=== PATIENT | male | born 1950 | race African-American/Black ===

== ENCOUNTER 2018-10-13 14:26 | Emergency (ER) | payer MEDICARE ==
[2018-10-13] MEDS ORDERED: Ondansetron PF 4 MG/2 ML Vial ONE (15:32)
[2018-10-13 15:55] LABS: Band 2 % (5-11); Hemoglobin 9.6 g/dL (14.0-18.0); Lymphocytes 5 % (21-51); MDiff Complete? YES; Mean Corpuscular HGB CONC 31.6 g/dL (32.0-36.0); Mean Corpuscular Hemoglobin 28.5 pg (27.0-31.0); Mean Corpuscular Volume 90.4 fL (78.0-98.0); Mean Platelet Volume 7.1 fL (7.4-10.4); Monocytes 4 % (0-10); Neutrophil 88 % (42-75); Platelet Count 177 thou/uL (130-400); Reactive Lymphocytes 1 % (0-10); Red Blood Cell (RBC) Count 3.38 mill/uL (4.70-6.10); White Blood Cell (WBC) Count 9.5 thou/uL (4.8-10.8)
[2018-10-13 15:56] LABS: ALT (SGPT) 25 U/L (8-55); AST (SGOT) 34 U/L (5-34); Alkaline Phosphatase 47 U/L (40-150); Anion Gap 17 mmol/L (10-20); BUN (Urea Nitrogen) 13 mg/dL (8.4-25.7); Bilirubin, Total 0.9 mg/dL (0.2-1.2); Calc. Creatinine Clearance 0 mL/min (70-130); Calcium 9.1 mg/dL (7.8-10.44); Carbon Dioxide 23 mmol/L (23-31); Chloride 100 mmol/L (98-107); Estimated GFR-MDRD 41; Glucose 171 mg/dL (80-115); Lipase 8 U/L (8-78); Sodium 136 mmol/L (136-145)
[2018-10-13 16:08] LABS: Clarity Clear (Clear); Glucose, Urine (Dipstick) Negative (Negative); Leukocyte Negative (Negative); Nitrite Negative (Negative); Protein, Urine (Dipstick) 30 mg/dL (Neg-Trace); Specific Gravity, Urine 1.015 (1.005-1.030); Urobilinogen 0.2 mg/dL (0.2-1.0); pH, Urine 5.5 (5.0-9.0)
[2018-10-13 16:09] LABS: Bilirubin Negative (Negative); Blood, Urine Small (Negative)
[2018-10-13 16:19] LABS: Bacteria/HPF Rare-Few HPF (None Seen); RBC/HPF 0-3 HPF (0-3); Squamous Epithelial 0-3 HPF (0-3); WBC/HPF 0-3 HPF (0-3)
[2018-10-13 16:20] LABS: Crystals/HPF 3+ URIC ACID HPF (Negative)
[2018-10-13 18:00] LABS: Troponin I 0.087 ng/mL (< 0.028)
[2018-10-13] MEDS ORDERED: Aspirin Chewable 81 MG TAB ONE (18:37)
--- NOTE | 2018-10-13 18:49 | CT ---
CT ABDOMEN AND PELVIS WITHOUT CONTRAST: 10/13/18 HISTORY: Nausea, vomiting, epigastric pain. No IV contrast due to abnormal lab values. FINDINGS: Comparison is made with exam of 09/23/11. Absence of oral and IV contrast reduces the sensitivity of the exam particularly for the evaluation o f solid organs and bowel. Lung bases are unremarkable. No free air or free fluid is seen in the abdomen or pelvis. No calcified gallstones are noted. There is a 3 mm calculus in the right kidney. No calculi is seen in the left k idney, either ureter or the urinary bladder. No hydroureteronephrosis is seen. The prostate is enlarg ed. There is no evidence of aneurysmal dilatation of the abdominal aorta. Degenerative changes are presen t in the spine. A normal appearing appendix is present. There are bilateral fat containing inguinal h ernia. The small bowel loops are not abnormally dilated. IMPRESSION: 1. Nonobstructing 3 mm right renal calculus. 2. Prostatic enlargement. 3. No evidence of appendicitis. POS: [facility]
== END 2018-10-13 21:12 | disposition home or self-care (01) ==
LOC: BURERS 14:26
DX: A08.4 Viral intestinal infection, unspecified (principal); I12.9 Hypertensive chronic kidney disease with stage 1 through stage 4 chronic kidney disease, or unspecified chronic kidney disease; R79.89 Other specified abnormal findings of blood chemistry; N18.9 Chronic kidney disease, unspecified; E11.22 Type 2 diabetes mellitus with diabetic chronic kidney disease; F32.9 Major depressive disorder, single episode, unspecified; Z79.899 Other long term (current) drug therapy
CPT/HCPCS: 74176; 80053; 81003; 81015; 82274; 82553; 83605; 83690; 84484; 85025; 93005; 96374; J2405

== ENCOUNTER 2019-03-10 19:05 | Emergency (ER) | payer MEDICARE ==
[2019-03-10] MEDS ORDERED: Ondansetron PF 4 MG/2 ML Vial ONE (19:23)
[2019-03-10 19:48] LABS: Bilirubin Negative (Negative); Blood, Urine Small (Negative); Clarity Slightly Cloudy (Clear); Glucose, Urine (Dipstick) 500 mg/dL (Negative); Leukocyte Negative (Negative); Nitrite Negative (Negative); Protein, Urine (Dipstick) 100 mg/dL (Neg-Trace); Urobilinogen 0.2 mg/dL (Less than 2)
[2019-03-10 19:56] LABS: Bacteria/HPF None Seen HPF (None Seen); Broad Cast None Seen LPF (None Seen); Calcium Oxalate Crystals None Seen HPF (None Seen); Cellular Cast None Seen LPF (None Seen); Epithelial Cast None Seen LPF (None Seen); Fatty Cast None Seen LPF (None Seen); Mucous/LPF None Seen LPF (<2+); Other Casts None Seen LPF (None Seen); Oval Fat Bodies/HPF None Seen HPF (None Seen); RBC/HPF 0-3 HPF (0-3); Red Blood Cell Cast None Seen LPF (None Seen); Renal Epithelial None Seen HPF (None Seen); Sperm/HPF None Seen HPF (None Seen); Squamous Epithelial None Seen HPF (0-3); Transitional Epithelial None Seen HPF (None Seen); Trichomonas/HPF None Seen HPF (None Seen); Triple Phosphate Crystal None Seen HPF (None Seen); Unclassified Crystals None Seen HPF (None Seen); WBC/HPF None Seen HPF (0-3); Waxy Cast None Seen LPF (None Seen); White Blood Cell Cast None Seen LPF (None Seen); Yeast-Budding None Seen HPF (None Seen); Yeast-Hyphae None Seen HPF (None Seen)
[2019-03-10 20:04] LABS: ALT (SGPT) 37 U/L (8-55); AST (SGOT) 25 U/L (5-34); Albumin 4.1 g/dL (3.4-4.8); Alkaline Phosphatase 60 U/L (40-150); Anion Gap 19 mmol/L (10-20); BUN (Urea Nitrogen) 14 mg/dL (8.4-25.7); Calc. Creatinine Clearance 0 mL/min (70-130); Calcium 10.1 mg/dL (7.8-10.44); Carbon Dioxide 22 mmol/L (23-31); Chloride 98 mmol/L (98-107); Estimated GFR-MDRD 39; Globulin 4.2 g/dL (2.4-3.5); Glucose 270 mg/dL (80-115); Protein, Total 8.3 g/dL (5.8-8.1); Sodium 135 mmol/L (136-145)
[2019-03-10 20:10] LABS: Hemoglobin 10.8 g/dL (14.0-18.0); Mean Corpuscular Hemoglobin 27.6 pg (27.0-31.0); Mean Platelet Volume 7.4 fL (7.4-10.4); Platelet Count 214 thou/uL (130-400); RBC Distribution Width 12.1 % (11.5-14.5); Red Blood Cell (RBC) Count 3.92 mill/uL (4.70-6.10); White Blood Cell (WBC) Count 8.8 thou/uL (4.8-10.8)
[2019-03-10 20:11] LABS: Lymphocytes 12 % (21-51); MDiff Complete? YES; Monocytes 9 % (0-10); Neutrophil 79 % (42-75)
--- NOTE | 2019-03-10 21:28 | RAD ---
PORTABLE CHEST: 03/10/19 An AP portable film at 1824 is presented with no prior films available for comparison. The heart is n ormal in size for AP projection and body habitus. The lungs are clear. There is no infiltrate or effu cici. IMPRESSION: No acute finding. POS: HOME
== END 2019-03-10 20:58 | disposition home or self-care (01) ==
LOC: BURERS 19:05
DX: E11.65 Type 2 diabetes mellitus with hyperglycemia (principal); E86.0 Dehydration; R11.2 Nausea with vomiting, unspecified; I10 Essential (primary) hypertension; F32.9 Major depressive disorder, single episode, unspecified; Z79.4 Long term (current) use of insulin; Z79.899 Other long term (current) drug therapy
CPT/HCPCS: 71045; 80053; 81003; 81015; 83880; 84484; 85025; 93005; 96361; 96374; J2405

== ENCOUNTER 2023-02-08 08:35 | Emergency (ER) | payer MEDICARE ==
[2023-02-08] MEDS ORDERED: Aspirin Chewable 81 MG TAB ONE (08:56)
[2023-02-08] MEDS ORDERED: Nitroglycerin 0.4 MG TAB 1 EACH ONE (08:57)
[2023-02-08] MEDS ORDERED: Metoprolol Tartrate 5 MG/5 ML VIAL ONE (09:06)
[2023-02-08] MEDS ORDERED: Nitroglycerin 50 MG/250 ML BOT 0 ML ONE (09:06)
[2023-02-08] MEDS ORDERED: Ondansetron PF 4 MG/2 ML Vial ONE (09:06)
[2023-02-08] MEDS ORDERED: fentaNYL 50 mcg/mL 1 mL Vial ONE (09:19)
[2023-02-08 09:38] LABS: Hemoglobin 15.9 g/dL (14.0-18.0); Mean Corpuscular HGB CONC 31.7 g/dL (32.0-36.0); Mean Corpuscular Hemoglobin 26.7 pg (27.0-31.0); Mean Corpuscular Volume 84.2 fl (78.0-98.0); Mean Platelet Volume 7.6 fL (7.4-10.4); Platelet Count 300 10x3/uL (130-400); RBC Distribution Width 12.4 % (11.5-14.5); Red Blood Cell (RBC) Count 5.94 mill/uL (4.70-6.10)
[2023-02-08 09:40] LABS: ALT (SGPT) 46 U/L (8-55); AST (SGOT) 62 U/L (5-34); Albumin 3.6 g/dL (3.4-4.8); Alkaline Phosphatase 130 U/L (40-110); Anion Gap 25 mmol/L (10-20); BUN (Urea Nitrogen) 21 mg/dL (8.4-25.7); Bilirubin, Total 2.8 mg/dL (0.2-1.2); Calc. Creatinine Clearance 0 mL/min (70-130); Calcium 9.6 mg/dL (7.8-10.44); Carbon Dioxide 17 mmol/L (23-31); Chloride 94 mmol/L (98-107); Estimated GFR 31; Globulin 4.2 g/dL (2.4-3.5); Glucose 344 mg/dL (83-110); Lipase 8 U/L (8-78); Potassium 3.5 mmol/L (3.5-5.1); Protein, Total 7.8 g/dL (5.8-8.1); Sodium 132 mmol/L (136-145)
[2023-02-08 09:58] LABS: Band 7 % (5-11); Eosinophils 1 % (0-10); Lymphocytes 2 % (21-51); MDiff Complete? YES; Monocytes 5 % (0-10); Neutrophil 85 % (42-75); Nucleated RBC (Manual Ct) 2 % (0); Platelet Adequacy Comment Appears Adequate
[2023-02-08] MEDS ORDERED: Heparin 10,000 UNITS/ 10 ML VIAL ONE (09:59)
[2023-02-08] MEDS ORDERED: Furosemide 40 MG/4 ML VIAL ONE (09:59)
[2023-02-08 10:08] LABS: CKMB 2.2 ng/mL (0-6.6)
[2023-02-08] MEDS ORDERED: Insulin Regular 300 UNITS/3 ML VIAL ONE (10:18)
[2023-02-08] MEDS ORDERED: Heparin 25,000 units/D5W 500 ML ONE (10:18)
[2023-02-08 10:28] LABS: INR-International Normal Ratio 1.3; Prothrombin Time 16.3 sec (12.0-14.7)
[2023-02-08 10:29] LABS: PTT 31.2 sec (22.9-36.1)
[2023-02-08 12:08] LABS: Lactic Acid 4.1 mmol/L (0.5-2.2)
== END 2023-02-08 11:59 | disposition short-term general hospital (02) ==
LOC: BURERS 08:35
DX: I21.4 Non-ST elevation (NSTEMI) myocardial infarction (principal); K81.0 Acute cholecystitis; I13.0 Hypertensive heart and chronic kidney disease with heart failure and stage 1 through stage 4 chronic kidney disease, or unspecified chronic kidney disease; E11.22 Type 2 diabetes mellitus with diabetic chronic kidney disease; N18.9 Chronic kidney disease, unspecified; I50.9 Heart failure, unspecified; E11.65 Type 2 diabetes mellitus with hyperglycemia; E78.00 Pure hypercholesterolemia, unspecified; Z79.899 Other long term (current) drug therapy; Z79.84 Long term (current) use of oral hypoglycemic drugs
CPT/HCPCS: 36415; 71045; 74176; 80053; 82553; 83605; 83690; 83880; 84484; 85025; 85610; 85730; 87040; 93005; 94760; 96361; 96365; 96366; 96375; 96376; J1644; J1815; J1940; J2405; J3010

== ENCOUNTER 2023-03-22 10:55 | Emergency (ER) | payer MEDICARE ==
[~2023-03-22 10:55] MED LIST: Iopamidol 370 76% 100 ML VIAL ONE
[2023-03-22] MEDS ORDERED: Morphine 2 MG/ML VIAL ONE (11:19)
[2023-03-22] MEDS ORDERED: Morphine 4 MG/ML VIAL ONE (11:20)
[2023-03-22] MEDS ORDERED: Ketorolac Tromethamine 30 MG/ML VIAL ONE (11:20)
[2023-03-22] MEDS ORDERED: Vancomycin 1 GM VIAL ONE (11:20)
[2023-03-22] MEDS ORDERED: Piperacillin/Tazobactam 3.375 GM VIAL ONE (11:20)
[2023-03-22] MEDS ORDERED: Sodium Chloride 0.9% 100 ML ONE (11:21)
[2023-03-22 11:35] LABS: #Lymphocytes 1.2 thou/uL (1.20-3.40); #Monocytes 0.8 thou/uL (0.11-0.59); #Neutrophils 5.2 thou/uL (1.40-6.50); %Basophils 0.6 % (0.0-1.0); %Eosinophils 0.7 % (0.0-10.0); %Monocytes 10.8 % (0.0-10.0); Hematocrit 38.2 % (42.0-52.0); Hemoglobin 11.3 g/dL (14.0-18.0); Mean Corpuscular HGB CONC 29.7 g/dL (32.0-36.0); Mean Corpuscular Volume 84.3 fl (78.0-98.0); Mean Platelet Volume 7.1 fL (7.4-10.4); Platelet Count 207 10x3/uL (130-400); RBC Distribution Width 12.7 % (11.5-14.5); Red Blood Cell (RBC) Count 4.53 mill/uL (4.70-6.10); White Blood Cell (WBC) Count 7.2 10x3/uL (4.8-10.8)
[2023-03-22 11:55] LABS: ALT (SGPT) 18 U/L (8-55); AST (SGOT) 13 U/L (5-34); Albumin 3.8 g/dL (3.4-4.8); Alkaline Phosphatase 91 U/L (40-110); Anion Gap 21 mmol/L (10-20); BUN (Urea Nitrogen) 24 mg/dL (8.4-25.7); Bilirubin, Total 0.9 mg/dL (0.2-1.2); Calc. Creatinine Clearance 0 mL/min (70-130); Calcium 9.6 mg/dL (7.8-10.44); Carbon Dioxide 19 mmol/L (23-31); Chloride 102 mmol/L (98-107); Estimated GFR 38; Globulin 4.4 g/dL (2.4-3.5); Glucose 143 mg/dL (83-110); Potassium 3.6 mmol/L (3.5-5.1); Protein, Total 8.2 g/dL (5.8-8.1); Sodium 138 mmol/L (136-145)
[2023-03-22 13:24] LABS: Bilirubin Small (Negative); Blood, Urine Moderate (Negative); Clarity Turbid (Clear); Glucose, Urine (Dipstick) 500 mg/dL (Negative); Ketone, Urine 15 mg/dL (Negative); Leukocyte Small (Negative); Nitrite Negative (Negative); Protein, Urine (Dipstick) > or equal to 300 mg/dL (Neg-Trace); Urobilinogen 0.2 mg/dL (Less than 2); pH, Urine 5.5 (5.0-9.0)
[2023-03-22 13:34] LABS: CAUTI Indications for Culture Pelvic or flank pain; WBC/HPF 21-50 HPF (0-3)
[2023-03-22 13:36] LABS: Bacteria/HPF 2+ HPF (None Seen); Yeast-Budding 3+ HPF (None Seen)
[2023-03-22 13:38] LABS: Urine Culture Reflex Yes Yes
== END 2023-03-22 13:15 | disposition short-term general hospital (02) ==
LOC: BURERS 10:55
DX: N50.811 Right testicular pain (principal); N45.2 Orchitis; N50.89 Other specified disorders of the male genital organs; I10 Essential (primary) hypertension; E11.9 Type 2 diabetes mellitus without complications; E78.5 Hyperlipidemia, unspecified; Z79.899 Other long term (current) drug therapy
CPT/HCPCS: 74177; 80053; 81001; 83605; 85025; 87040; 87077; 87086; 87149; 96365; 96375; J1885; J2270; J2272; J2543; J3370; J3490; Q9967